=== PATIENT | female | born 1990 | race Caucasian/White ===

== ENCOUNTER → 2016-09-01 | Outpatient (REF) | payer OTHER | LOC: M LAB REF 13:04 | PROVIDERS: ATTEND Advanced Practice Midwife | DX: Z34.83 Encounter for supervision of other normal pregnancy, third trimester (principal) ==

== ENCOUNTER 2016-10-05 07:35 | Inpatient (IN) | payer OTHER ==
[~2016-10-05] VITALS: Ht 152.4 cm; Wt 65.0 kg
[2016-10-05] VITALS (7 sets, daily range): BP systolic 119–147; BP diastolic 73–82
[2016-10-05] MEDS ORDERED: PRENTAB9 PO (07:40)
[2016-10-05] MEDS ORDERED: LACTATED RINGER'S 1000 ML IV STA (08:05)
[2016-10-05] MEDS: miSOPROStol 50 MCG 1/2 TAB (S0191) PO SCH ×2 (08:35→12:50)
[2016-10-05 08:37] LABS: MEAN CORPUSCULAR HEMOGLOBIN 29.6 pg (27.0-33.0); MEAN CORPUSCULAR HGB CONC 32.4 g/dl (32.0-36.5); MEAN CORPUSCULAR VOLUME 91.5 fl (80.0-96.0); RED CELL DISTRIBUTION WIDTH 13.3 % (11.5-14.5)
--- NOTE | 2016-10-05 13:10 | HPE ---
DATE OF ADMISSION: 10/05/2016 HISTORY: 26-year-old, 1, estimated date of delivery 09/29/2016, admitted at 40 weeks 6 days for induction of labor. Denies loss of fluid or bleeding. Fetus is active. Last normal menstrual period 12/24/2015, for expected date of delivery (LUCHO) of 09/29/2016, sonogram at 9 weeks confirmed the date. Anatomy scan within normal limits. Low lying placenta, resolved. ALLERGIES: No known drug allergies. MEDICAL/SURGICAL: Noncontributory. FAMILY HISTORY: Cancer, diabetes, hypertension and vascular necrosis. SOCIAL HISTORY: . Denies tobacco, alcohol, drugs or abuse. OBJECTIVE: Prepregnancy weight 121, total weight gain 32 pounds. A negative, received RhoGAM. Antibody negative, rubella immune, VDRL, hepatitis B, hepatitis C, HIV, gonorrhea, and Chlamydia all negative. 1-hour glucose 110. Group B strep is negative. No apparent distress. Vital signs are stable. Heart rate is regular. Respirations are easy. Abdomen is soft, gravid, longitudinal lie. Irregular contractions. heart 120, moderate variability with a few accelerations. Cervix 2-3 cm, 80% -1 station, moderate texture, cephalic. ASSESSMENT: 1. Primipara at term for induction of labor. 2. Category one tracing. PLAN: Admit for induction of labor per consult. The patient plans epidural. Anticipate normal spontaneous vaginal .
[2016-10-05] MEDS ORDERED: LR 1,000 ML IV SCH (14:23)
[2016-10-05] MEDS ORDERED: OXYTOCIN DRIP 30 UNITS in APPROPRIATE DILUENT 1 EA IV SCH (14:30)
[2016-10-05] MEDS ORDERED: FENTANYL 2MCG/ML ROPIVACAINE 0.2% NACL 250 ML CADD As Ordered ONE (20:35)
[2016-10-05] MEDS ORDERED: BUTORPHANOL 2 MG/ML INJ (J0595) IV ONE (20:45)
[2016-10-05] MEDS ORDERED: REFRIGERATOR IV KEYS XX PRN (22:00)
[2016-10-05] MEDS ORDERED: diphenhydrAMINE INJ 50MG/ML VIAL (J1200) IV PRN (22:00)
[2016-10-05] MEDS ORDERED: FENTANYL/ROPIVACAINE/NACL CADD 250 ML EPIDURAL SCH (22:00)
[2016-10-05] MEDS ORDERED: ONDANSETRON 4MG/2ML VIAL (J2405) IV PRN (22:00)
[2016-10-05] MEDS ORDERED: EPIDURAL/PCA KEYS XX PRN (22:00)
[2016-10-05] MEDS ORDERED: EPIDURAL COMMENT XX SCH (22:00)
[2016-10-05] MEDS ORDERED: NALOXONE INJ 0.4 MG/1 ML VIAL (J2310) IV PRN (22:00)
[2016-10-05] MEDS ORDERED: ePHEDrine SULFATE 25 MG/5 ML(5MG/ML) SYRINGE IV PRN (22:00)
[2016-10-05] MEDS ORDERED: LACTATED RINGER'S 1000 ML IV PRN (22:00)
[2016-10-06] MEDS ORDERED: DIBUCAINE 1% OINTMENT 30GM TOP PRN (04:30)
[2016-10-06] MEDS ORDERED: DOCUSATE SODIUM 100 MG CAP PO PRN (04:30)
[2016-10-06] MEDS ORDERED: MOM 30ML SUSPENSION UDC PO PRN (04:30)
[2016-10-06] MEDS ORDERED: ANUSOL HC CREAM 30GM TOP PRN (04:30)
[2016-10-06] MEDS ORDERED: RHOGAM 300 MCG (1500 IU) INJ (J2790) IM SCH (04:30)
[2016-10-06] MEDS ORDERED: METHYLERGONOVINE MALEATE 0.2 MG TAB PO PRN (04:30)
[2016-10-06] MEDS ORDERED: MEASLES,MUMPS,RUBELLA VACCINE INJ (MMR-II) (90707) SC SCH (04:30)
[2016-10-06 06:29] VITALS: BP 128/80
[2016-10-06] MEDS: PRENATAL VITAMIN TAB PO SCH (09:22)
--- NOTE | 2016-10-06 14:01 | DN ---
DATE: 10/06/2016. Utilized epidural for coping. Spontaneous rupture of membranes, clear fluid at 8 cm at 2226 hours. Labored down. Fully dilated 2335 hours. Pushed with encouragement. Viable male delivered ALYSSA through tight nuchal cord at 0342 hours. Spontaneous respirations with stimulation. Transitioned on maternal abdomen. Cord doubly clamped and cut once pulsations ceased. scores nine and nine. Placenta Jha intact with three-vessel cord at 0356 hours. Fundus firmed with massage and IV Pitocin bolus. Second-degree perineal laceration repaired in layers with #3-0 Vicryl Rapide. Estimated blood loss 300 mL. Infant weight 3806 grams, 8 pounds 6 ounces. Sponge, sharp and instrument count correct. Mom and baby doing well.
[2016-10-06] MEDS: IBUPROFEN 800 MG TAB PO PRN (14:11)
[2016-10-06] MEDS: ACETAMINOPHEN 500 MG TAB PO PRN (17:44)
[2016-10-06 18:05] VITALS: BP 150/98
[2016-10-07] MEDS: IBUPROFEN 800 MG TAB PO PRN ×2 (02:32→22:28)
[2016-10-07 06:15] VITALS: BP 129/88
[2016-10-07] MEDS: ACETAMINOPHEN 500 MG TAB PO PRN (08:36)
[2016-10-07] MEDS: PRENATAL VITAMIN TAB PO SCH (08:36)
[2016-10-07 18:00] VITALS: BP 141/85
[2016-10-08 05:56] VITALS: BP 146/92
[2016-10-08] MEDS: PRENATAL VITAMIN TAB PO SCH (08:52)
[2016-10-08] MEDS ORDERED: ACET50TA PO (10:14)
[2016-10-08] MEDS ORDERED: IBUP-1114 PO (10:14)
== END 2016-10-08 12:45 | disposition home or self-care (01) | DRG 775 ==
LOC: M LDI 07:35 → M OBS 10-06 05:52
PROVIDERS: ADMIT Advanced Practice Midwife; ATTEND Advanced Practice Midwife
PROC: 10E0XZZ Delivery of Products of Conception, External Approach (ICD-10-PCS; principal; 2016-10-06)
PROC: 0KQM0ZZ Repair Perineum Muscle, Open Approach (ICD-10-PCS; 2016-10-06)
PROC: 3E0P7GC Introduction of Other Therapeutic Substance into Female Reproductive, Via Natural or Artificial Opening (ICD-10-PCS; 2016-10-06)
DX: O48.0 Post-term pregnancy (principal); Z3A.40 40 weeks gestation of pregnancy; O69.1XX0 Labor and delivery complicated by cord around neck, with compression, not applicable or unspecified; O70.1 Second degree perineal laceration during delivery; Z37.0 Single live birth

== ENCOUNTER → 2016-12-01 | Outpatient (REF) | payer OTHER ==
[~2016-12-01] MED LIST: ACET50TA PO; IBUP-1114 PO; PRENTAB9 PO
== END ==
LOC: M LAB REF 09:00
PROVIDERS: ATTEND Advanced Practice Midwife
DX: Z11.3 Encounter for screening for infections with a predominantly sexual mode of transmission (principal)

== ENCOUNTER → 2017-08-07 | Outpatient (REF) | payer OTHER | LOC: M LAB REF 19:35 | PROVIDERS: ATTEND Physician Assistant Medical | DX: N30.01 Acute cystitis with hematuria (principal) ==

== ENCOUNTER → 2018-04-29 | Outpatient (REF) ==
[2018-04-29 13:40] LABS: BASO % 0.5 % (0.0-1.0); EOS % 0.5 % (0.0-3.0); HEMATOCRIT 42.9 % (36.0-47.0); HEMOGLOBIN 14.7 g/dl (12.0-15.5); IMMATURE GRANULOCYTE % 0.3 % (0-3.0); LYMPH # 2.5 10^3/uL (1.5-6.5); LYMPH % 37.5 % (24.0-44.0); MEAN CORPUSCULAR HEMOGLOBIN 30.6 pg (27.0-33.0); MEAN CORPUSCULAR HGB CONC 34.3 g/dl (32.0-36.5); MEAN CORPUSCULAR VOLUME 89.2 fl (80.0-96.0); MONO # 0.5 10^3/uL (0.0-0.8); MONO % 6.9 % (0.0-5.0); NEUTROPHILS # 3.6 10^3/uL (1.8-7.7); NEUTROPHILS % 54.3 % (36.0-66.0); PLATELET COUNT, AUTOMATED 228 10^3/uL (150-450); RED BLOOD COUNT 4.81 10^6/uL (4.00-5.40); RED CELL DISTRIBUTION WIDTH 11.8 % (11.5-14.5); WHITE BLOOD COUNT 6.5 10^3/uL (4.0-10.0)
[2018-04-29 13:44] LABS: APPEARANCE, URINE CLEAR (CLEAR); BACTERIA, URINE AUTO NEGATIVE (NEGATIVE); BILIRUBIN, URINE AUTO NEGATIVE (NEGATIVE); BLOOD, URINE BLOOD NEGATIVE (NEGATIVE); COLOR, URINE YELLOW (YELLOW); GLUCOSE, URINE (UA) AUTO NEGATIVE (NEGATIVE); KETONE, URINE AUTO TRACE mg/dL (NEGATIVE); LEUKOCYTE ESTERASE, URINE AUTO NEGATIVE (NEGATIVE); MUCUS, URINE SMALL (NEGATIVE); NITRITE, URINE AUTO NEGATIVE (NEGATIVE); PROTEIN, URINE AUTO NEGATIVE (NEGATIVE); RBC, URINE AUTO 8 /HPF (0-3); SQUAMOUS EPITHELIAL CELL UR AU 2 /HPF (0-6); UROBILINOGEN, URINE AUTO 0.2 mg/dL (0.0-2.0); WBC, URINE AUTO 0 /HPF (0-3)
[2018-04-29 23:28] LABS: ALBUMIN 4.4 GM/DL (3.2-5.2); ALKALINE PHOSPHATASE 69 U/L (45-117); ALT/SGPT 19 U/L (12-78); ANION GAP 9 MEQ/L (8-16); AST/SGOT 13 U/L (7-37); BILIRUBIN,TOTAL 0.5 MG/DL (0.2-1.0); BLOOD UREA NITROGEN 10 MG/DL (7-18); CALCIUM LEVEL 10.3 MG/DL (8.5-10.1); CARBON DIOXIDE LEVEL 25 MEQ/L (21-32); CHLORIDE LEVEL 105 MEQ/L (98-107); CREATININE FOR GFR 0.71 MG/DL (0.55-1.30); GLOMERULAR FILTRATION RATE > 60.0 (>60); GLUCOSE, FASTING 84 MG/DL (70-100); POTASSIUM SERUM 4.5 MEQ/L (3.5-5.1); SODIUM LEVEL 139 MEQ/L (136-145); TOTAL PROTEIN 7.8 GM/DL (6.4-8.2)
[2018-04-29 23:36] LABS: ALBUMIN/GLOBULIN RATIO 1.29 (1.00-1.93)
== END ==
LOC: M LAB 12:54
DX: Z00.00 Encounter for general adult medical examination without abnormal findings (principal)

== ENCOUNTER → 2018-06-20 | Outpatient (REF) | payer BC, OTHER | LOC: M LAB REF 19:14 | DX: N39.0 Urinary tract infection, site not specified (principal) ==

== ENCOUNTER → 2020-01-13 | Outpatient (REF) | payer BC ==
[~2020-01-13] MED LIST changes: -ACET50TA PO; +MAPA500T2 PO
== END ==
LOC: M SFHCWAGY 13:13
PROVIDERS: ATTEND Advanced Practice Midwife
DX: Z01.419 Encounter for gynecological examination (general) (routine) without abnormal findings (principal); Z12.4 Encounter for screening for malignant neoplasm of cervix

== ENCOUNTER → 2020-02-06 | Outpatient (CLI) | payer BC ==
--- NOTE | 2020-02-06 08:44 | REP ---
Pelvic sonography: History: Check IUD placement. Findings: Transabdominal and transvaginal scanning are performed. A retroverted normal size uterus is seen with dimensions of 7.3 x 3.7 x 5.7 cm. Endometrial echo 0.4 cm thick. IUD is seen in good position. No focal uterine mass or free fluid is seen. Normal ovaries are observed. Right ovary dimensions are 3.2 x 1.3 x 1.4 cm. Left ovary measures 3.6 x 1.6 x 1.7 cm. Ovarian Doppler flow is present bilaterally. Resistive indices are 0.53 and 0.51 on the right and left ovary respectively. Impression: Retroverted uterus. IUD in good position. No pelvic sonography. Electronically Signed by Gustavo Dutton MD 02/06/2020 08:36 A
== END ==
LOC: M WHC 07:44
PROVIDERS: ATTEND Advanced Practice Midwife
DX: Z12.4 Encounter for screening for malignant neoplasm of cervix (principal); Z97.5 Presence of (intrauterine) contraceptive device; N85.4 Malposition of uterus

== ENCOUNTER → 2020-05-05 | Outpatient (REF) | payer BC ==
[2020-05-05 13:51] LABS: APPEARANCE, URINE CLOUDY (CLEAR); BACTERIA, URINE AUTO NEGATIVE (NEGATIVE); BILIRUBIN, URINE AUTO NEGATIVE (NEGATIVE); BLOOD, URINE BLOOD 3+ (NEGATIVE); COLOR, URINE YELLOW (YELLOW); GLUCOSE, URINE (UA) AUTO NEGATIVE (NEGATIVE); KETONE, URINE AUTO NEGATIVE (NEGATIVE); LEUKOCYTE ESTERASE, URINE AUTO 3+ (NEGATIVE); MUCUS, URINE SMALL (NEGATIVE); NITRITE, URINE AUTO NEGATIVE (NEGATIVE); PROTEIN, URINE AUTO 2+ mg/dL (NEGATIVE); RBC, URINE AUTO TNTC /HPF (0-3); SPECIFIC GRAVITY URINE AUTO 1.019 (1.002-1.035); SQUAMOUS EPITHELIAL CELL UR AU 5 /HPF (0-6); UROBILINOGEN, URINE AUTO 0.2 mg/dL (0.0-2.0); WBC, URINE AUTO TNTC /HPF (0-3)
== END ==
LOC: M SMT 13:12
PROVIDERS: ATTEND Nurse Practitioner Family
DX: N39.0 Urinary tract infection, site not specified (principal)

== ENCOUNTER → 2021-01-03 | Outpatient (REF) | payer BC ==
[2021-01-03 15:40] LABS: HEMATOCRIT 40.1 % (36.0-47.0); HEMOGLOBIN 13.2 g/dl (12.0-15.5); MEAN CORPUSCULAR HEMOGLOBIN 30.8 pg (27.0-33.0); MEAN CORPUSCULAR HGB CONC 32.9 g/dl (32.0-36.5); MEAN CORPUSCULAR VOLUME 93.5 fl (80.0-96.0); PLATELET COUNT, AUTOMATED 216 10^3/uL (150-450); RED BLOOD COUNT 4.29 10^6/uL (4.00-5.40); WHITE BLOOD COUNT 7.5 10^3/uL (4.0-10.0)
[2021-01-03 16:59] LABS: HIV 1&2 SCREEN CENTAUR NEGATIVE (NEGATIVE)
[2021-01-03 17:15] LABS: CHLAMYDIA DNA AMPLIFICATION NEGATIVE (NEGATIVE); GC DNA AMPLIFICATION NEGATIVE (NEGATIVE)
== END ==
LOC: M PLALAB 12:41
PROVIDERS: ATTEND Advanced Practice Midwife
DX: Z34.81 Encounter for supervision of other normal pregnancy, first trimester (principal); Z3A.01 Less than 8 weeks gestation of pregnancy

== ENCOUNTER → 2021-03-08 | Outpatient (CLI) | payer BC ==
--- NOTE | 2021-03-08 16:13 | REP ---
INDICATION: ANATOMY. COMPARISON: None. TECHNIQUE: Real-time sonographic evaluation of the gravid uterus performed. Transabdominal and transvaginal imaging is performed. FINDINGS: Estimated gestational age is19 weeks 1 day, EDC 08/01/2021. Today's measurements indicate appropriate growth. Presentation: Breech Placenta posterior, grade 1, and on transvaginal imaging there appears to be complete placenta previa. heart rate is recorded at 147 beats per minute. Amniotic fluid is subjectively normal. Closed cervical length is measured at 4.8 cm. Biometry chart: BPD: 47 mm, 20 weeks 2 days, 81st percentile. HC: 172 mm, 19 weeks 5 days, 69th percentile AC: 140 mm, 19 weeks 3 days, 55th percentile Femur length: 29 mm, 19 weeks 0 days, 47th percentile HC to AC ratio: 1.23, normal range 1.06-1.25. Estimated weight: 285g, 55th percentile. anatomy: Cranium: Grossly normal Lateral Ventricles/Choroid Plexus: Grossly normal Posterior Fossa/Cerebellum: Grossly normal Nose/lips/profile: Grossly normal Four chamber heart: Grossly normal Right ventricular outflow tract: Grossly normal Left ventricular outflow tract: Grossly normal Left-sided stomach: Grossly normal Kidneys: Grossly normal Bladder: Grossly normal Cord Insertion: Grossly normal 3 vessel cord: Grossly normal Spine: Grossly normal IMPRESSION: Viable single intrauterine gestation as above. Complete placenta previa. <Electronically signed by Philippe Thomas > 03/08/21 [id number]
== END ==
LOC: M WHC 14:56
PROVIDERS: ATTEND Specialist
DX: O32.1XX0 Maternal care for breech presentation, not applicable or unspecified (principal); Z36.89 Encounter for other specified antenatal screening; Z3A.20 20 weeks gestation of pregnancy; O44.02 Complete placenta previa NOS or without hemorrhage, second trimester

== ENCOUNTER → 2021-04-21 | Outpatient (CLI) | payer BC ==
--- NOTE | 2021-04-21 19:20 | REP ---
INDICATION: COMPLETE PREVIA. COMPARISON: Comparison obstetric sonography March 08, 2021. TECHNIQUE: Transabdominal and transvaginal scanning or performed. Limited Ob sonography. FINDINGS: Scanning through the gravid uterus demonstrates a viable single intrauterine gestation in a breech lie. heart rate is recorded at 155 beats per minute. A posterior grade 1 placenta is seen with a low lying posterior margin. On transvaginal imaging, the inferior edge of the placenta is 2.0 cm from the internal cervical os. Amniotic fluid is subjectively normal. Closed cervical length is 3.6 cm. No funneling. IMPRESSION: Low-lying posterior placenta. 2 cm from the internal cervical os. No previa. <Electronically signed by Freedom Dutton > 04/21/21 [id number]
== END ==
LOC: M WHC 12:00
PROVIDERS: ATTEND Obstetrics & Gynecology
DX: O44.42 Low lying placenta NOS or without hemorrhage, second trimester (principal); O32.1XX0 Maternal care for breech presentation, not applicable or unspecified

== ENCOUNTER → 2021-05-17 | Outpatient (CLI) | payer BC ==
--- NOTE | 2021-05-17 10:20 | REP ---
INDICATION: COMPLETE PLACENTA PREVIA. COMPARISON: Comparison studies April 21, 2021 and March 08, 2021. TECHNIQUE: Transabdominal obstetric sonography. FINDINGS: Scanning through the gravid uterus demonstrates a viable single intrauterine gestation in cephalic lie. motion is observed and heart rate is recorded at 158 beats per minute. A posterior placenta is seen, grade 1, without evidence of placenta previa. Closed cervical length is measured at 3.3 cm transabdominally. No extrauterine abnormality is observed. Amniotic fluid is subjectively normal. RYAN is normal at 21.3 cm. Biometry chart: BPD 7.8 cm, 31 weeks 2 days Head circumference 28.5 cm, 31 weeks 2 days Abdominal circumference 24.5 cm, 28 weeks 5 days Femur length 5.5 cm, 29 weeks 0 days Humeral length 5.0 cm, 29 weeks 2 days HC AC ratio normal 1.16 Cephalic index normal 0.77 Estimated weight 1363 g, 3 lb 0 oz, 41st percentile for 29 weeks 1 day IMPRESSION: Viable single intrauterine gestation at 30 weeks 0 days by today's composite sonographic criteria. LUCHO by today's sonography July 26, 2021. No complication identified. Expected gestational age estimate based on known LUCHO of 01 August 2021 is 29 weeks 1 day. No evidence of placenta previa. <Electronically signed by Freedom Dutton > 05/17/21 1016
== END ==
LOC: M WHC 07:40
PROVIDERS: ATTEND Obstetrics & Gynecology
DX: Z36.2 Encounter for other antenatal screening follow-up (principal); Z3A.30 30 weeks gestation of pregnancy

== ENCOUNTER → 2021-05-19 | Outpatient (REF) ==
[2021-05-19 15:35] LABS: APPEARANCE, URINE CLEAR (CLEAR); BACTERIA, URINE AUTO NEGATIVE (NEGATIVE); BILIRUBIN, URINE AUTO NEGATIVE (NEGATIVE); BLOOD, URINE BLOOD NEGATIVE (NEGATIVE); COLOR, URINE YELLOW (YELLOW); GLUCOSE, URINE (UA) AUTO NEGATIVE (NEGATIVE); KETONE, URINE AUTO NEGATIVE (NEGATIVE); LEUKOCYTE ESTERASE, URINE AUTO NEGATIVE (NEGATIVE); NITRITE, URINE AUTO NEGATIVE (NEGATIVE); PROTEIN, URINE AUTO NEGATIVE (NEGATIVE); RBC, URINE AUTO 0 /HPF (0-3); SPECIFIC GRAVITY URINE AUTO 1.016 (1.002-1.035); SQUAMOUS EPITHELIAL CELL UR AU 0 /HPF (0-6); UROBILINOGEN, URINE AUTO 0.2 mg/dL (0.0-2.0); WBC, URINE AUTO 0 /HPF (0-3)
[2021-05-19 15:40] LABS: BASO % 0.3 % (0.0-1.0); EOS % 0.4 % (0.0-3.0); HEMATOCRIT 38.8 % (36.0-47.0); HEMOGLOBIN 12.9 g/dl (12.0-15.5); LYMPH # 1.4 10^3/uL (1.5-5.0); LYMPH % 18.6 % (24.0-44.0); MEAN CORPUSCULAR HEMOGLOBIN 32.2 pg (27.0-33.0); MEAN CORPUSCULAR HGB CONC 33.2 g/dl (32.0-36.5); MEAN CORPUSCULAR VOLUME 96.8 fl (80.0-96.0); MONO # 0.6 10^3/uL (0.0-0.8); MONO % 7.7 % (2.0-8.0); NEUTROPHILS # 5.5 10^3/uL (1.5-8.5); NEUTROPHILS % 71.3 % (36.0-66.0); PLATELET COUNT, AUTOMATED 165 10^3/uL (150-450); RED BLOOD COUNT 4.01 10^6/uL (4.00-5.40); WHITE BLOOD COUNT 7.7 10^3/uL (4.0-10.0)
[2021-05-19 16:21] LABS: ALBUMIN 2.8 GM/DL (3.2-5.2); ALT/SGPT 14 U/L (12-78); BILIRUBIN,TOTAL 0.2 MG/DL (0.2-1.0); BLOOD UREA NITROGEN 7 MG/DL (7-18); CALCIUM LEVEL 9.6 MG/DL (8.5-10.1); CARBON DIOXIDE LEVEL 26 MEQ/L (21-32); CHLORIDE LEVEL 105 MEQ/L (98-107); CREATININE FOR GFR 0.55 MG/DL (0.55-1.30); GLOMERULAR FILTRATION RATE > 60.0 (>60); GLUCOSE, FASTING 93 MG/DL (70-100); POTASSIUM SERUM 3.9 MEQ/L (3.5-5.1); SODIUM LEVEL 138 MEQ/L (136-145)
== END ==
LOC: M PLALAB 12:14
PROVIDERS: ATTEND Nurse Practitioner Adult Health
DX: Z02.1 Encounter for pre-employment examination (principal)

== ENCOUNTER → 2021-05-19 | Outpatient (CLI) | payer BC ==
[2021-05-19 15:40] LABS: HEMATOCRIT 38.9 % (36.0-47.0); HEMOGLOBIN 12.8 g/dl (12.0-15.5); MEAN CORPUSCULAR HEMOGLOBIN 31.8 pg (27.0-33.0); MEAN CORPUSCULAR HGB CONC 32.9 g/dl (32.0-36.5); MEAN CORPUSCULAR VOLUME 96.8 fl (80.0-96.0); PLATELET COUNT, AUTOMATED 167 10^3/uL (150-450); RED BLOOD COUNT 4.02 10^6/uL (4.00-5.40); WHITE BLOOD COUNT 7.8 10^3/uL (4.0-10.0)
== END ==
LOC: M PLALAB 12:09
PROVIDERS: ATTEND Obstetrics & Gynecology
DX: O44.42 Low lying placenta NOS or without hemorrhage, second trimester (principal)
CPT/HCPCS: 36415; 82950; 85027; 86850; 86900; 86901; J2790

== ENCOUNTER → 2021-07-07 | Outpatient (REF) | payer BC | LOC: M SFHCWAGY 13:05 | PROVIDERS: ATTEND Obstetrics & Gynecology | DX: Z36.89 Encounter for other specified antenatal screening (principal); Z3A.00 Weeks of gestation of pregnancy not specified ==

== ENCOUNTER → 2021-07-11 | Outpatient (REF) | LOC: M LABSMTC 10:22 | PROVIDERS: ATTEND Family Medicine | DX: Z20.822 Contact with and (suspected) exposure to COVID-19 (principal) ==

== ENCOUNTER → 2021-07-16 | Outpatient (REF) ==
[~2021-07-16] MED LIST changes: +IBUP80TA PO
== END ==
LOC: M LABSMTC 11:31
PROVIDERS: ATTEND Family Medicine
DX: Z20.822 Contact with and (suspected) exposure to COVID-19 (principal)

== ENCOUNTER 2021-07-25 11:16 | Inpatient (IN) | payer BC ==
[~2021-07-25] VITALS: Ht 152.4 cm; Wt 68.1 kg
[2021-07-25] VITALS (34 sets, daily range): BP systolic 99–147; BP diastolic 51–87
[~2021-07-25 11:16] MED LIST changes: -IBUP80TA PO
--- OUTSIDE RECORDS SUMMARY | 2021-07-25 11:23 | CCD ---
Continuity of Care Document (CCD) Created on: 05/20/2021 Elly Zendejas External Reference #: [id number] : 1990 Sex: Female Author Author Elly MEYER Organization Unknown Address [address] [place] [address] Phone [phone] Care Team Providers Care Pharmacy Technician Program Director Name Role Phone Kianna Meyer D.O. AUTM Problems Description No Information Available Social History Type Date Description Comments Sex Unknown ETOH Use Denies alcohol use Tobacco Use Start: Unknown Patient has never smoked Recreational Drug Use Denies Drug Use Exercise Type/Frequency Walks 3 times a week Sun Exposure Uses sunscreen Seat Belt/Car Seat Always uses seat belt Allergies, Adverse Reactions, Alerts Description No Known Drug Allergies Medications Active Medications SIG Qnty Indications Ordering Provide r Date Mirena (52 MG) 20mcg/24HR IUD Kianna Meyer D.O. 06/16/2019 Clindamycin Phos-Benzoyl Perox 1-5 % Gel apply to face area twice daily 100gm L70.0 Kianna christian D.O. 06/16/2019 Immunizations Description No Information Available Vital Signs Date Vital Result Comment 06/16/2019 3:07pm BP Systolic 116 mmHg BP Diastolic 74 mmHg Height 60 inches 5'0" Weight 130.25 lb BMI (Body Mass Index) 25.4 kg/m2 Heart Rate 84 /min Respiratory Rate 16 /min Body Temperature 99.1 F O2 % BldC Oximetry 98 % [place] Body Weight 100 lb Results Test Acquired Date Facility Test Result H/L Range Note Complete Blood Count 05/19/2021 [facility] Outpatient Test ing (Registration) [address] [place], [place] [id number] [phone] White Blood Count 7.8 10 Normal 4.0-10.0 Red Blood Count 4.02 10 Normal 4.00-5.40 Hemoglobin 12.8 g/dL Normal 12.0-15.5 Hematocrit 38.9 % Normal 36.0-47.0 Mean Corpuscular Volume 96.8 fl High 80.0-96.0 Mean Corpuscular Hemoglobin 31.8 pg Normal 27.0-33.0 Mean Corpuscular HGB Conc 32.9 g/dL Normal 32.0-36.5 Red Cell Distribution Width 13.1 % Normal 11.5-14.5 Platelet Count, Automated 167 10 Normal 150-450 Nucleated Red Blood Cell % 0.0 % Normal 0-0 Laboratory test finding 05/19/2021 [facility] Outpatient T esting (Registration) [address] [place], [place] [id number] [phone] Glucose Challenge Test 1 Hour 80 mg/dL Normal Le ss Than 140 Procedures Description No Information Available Medical Devices Description No Information Available Encounters Description No Information Available Assessments Description No Information Available Plan of Treatment No Information Available Functional Status Description No Information Available Mental Status Description No Information Available Referrals Description No Information Available
--- OUTSIDE RECORDS SUMMARY | 2021-07-25 11:23 | CCD ---
Author Author [facility] Organization [facility] Address Unknown Phone Unavailable Care Team Providers Care Assistant Hvac Mechanic Name Role Phone Hermelindo Vidal Unavailable PROBLEMS Type Condition ICD9-CM Code [id number] Code Onset Dates Condition S tatus W/U Status Risk SNOMED Code Notes Problem Medina angioma D18.01 Active confirmed 18194 01 Problem Nevus of buttock D22.5 Active confirmed 923 47776 Problem Nevus of neck D22.4 Active confirmed 941775 00 Problem Melanocytic nevi of trunk D22.5 Active confirmed 168511021 Problem Acne vulgaris L70.0 Active confirmed 583724 00 Problem Supervision of other normal Z34.80 Ac tive confirm 677327738 Problem Melanocytic nevi of left lower limb, including hip D22.72 Active confirmed 305821627 Problem Melanocytic nevi of right lower limb, including hip D22.71 Active confirmed 939712715 Problem Melanocytic nevi of left upper limb, including shoulder D22.62 Active confirmed 558086399 Problem Melanocytic nevi of right upper limb, including shoulder D22.61 Active confirmed [id number] ALLERGIES No Known Allergies ENCOUNTERS from 1990 to 2021-07-07 Encounter Location Date Provider Diagnosis [facility] [facility] [phone] [place] [address] May, Hermelindo Vidal 33 weeks gestation o f Z3A.33 and Encounter for supervision of other normal in third trimester Z34.83 IMMUNIZATIONS Vaccine Route Administration Date Status TDAP 0.5mL Boostrix IM Intramuscular May 20, 2021 Administere d Influenza 6mo & up Fluzone IM Intramuscular Jun 03, 2021 Admi nistered SOCIAL HISTORY Tobacco Use: Social History Observation Description Date Details (start date - stop date) Never Smoker Sex Assigned At : Social History Observation Description Sex Assigned At Unknown Domestic Violence: Question Answer Notes Status: No history of abuse Alcohol Screening: Question Answer Notes Did you have a drink containing alcohol in the past year? No Points 0 Interpretation Negative Tobacco Use: Question Answer Notes Are you a: never smoker REASON FOR REFERRAL No Information VITAL SIGNS Weight 144 lbs May, Height 60 in May, BMI 28.123 kg/m2 May, Blood pressure systolic 110 mm Hg May, Blood pressure diastolic 60 mm Hg May, MEDICATIONS Medication SIG (Take, Route, Frequency, Duration) Notes Start Da te End Date Status Spironolactone 25 mg 1 tablet Orally Daily for 30 day(s) Not-Taking Vitamin 27-0.8 MG 1 tablet Orally Once a day Active Clindamycin Phosphate 1 % 1 application to affected ar ea Externally Twice a day for 30 days Active Azelaic Acid 20 % 1 application Externally Once a day for 30 days Active IUD's Not-Taking PROCEDURES No Information RESULTS No Results REASON FOR VISIT 2WK PN MEDICAL (GENERAL) HISTORY Type Description Date Medical History acne Surgical History No know Surgical history Hospitalization History childbirth Goals Section No Information Health Concerns No Information MEDICAL EQUIPMENT No Information MENTAL STATUS No Information FUNCTIONAL STATUS No Information ASSESSMENTS Encounter Date Diagnosis Assessment Notes Treatment Notes Treatm ent Clinical Notes May, 33 weeks gestation of (ICD-10 - Z3A.33 ) May, Encounter for supervision of other normal in third trimester (ICD-10 - Z34.83) PLAN OF TREATMENT Next Appt Details 2 Weeks Reason:PN Provider Name:Era Hagan, 2021-07-12 11:40:00 AM, [address] [facility], , [place], [address], Provider Name:Catarina Valdes, 09:15:00 AM, [address] [facility], , [place], [address], Follow Up:2 WeeksPN Insurance Providers Payer Name Payer Address Payer Phone Insured Name Patient Relati onship to Insured Coverage Start Date Coverage End Date [employer] [facility] [place] [facility] [id number] [facility] [id number] VERONICA CHAVEZ self
--- OUTSIDE RECORDS SUMMARY | 2021-07-25 11:23 | CCD | Continuity of Care Document ---
Author Author Elly MEYER Organization Unknown Address [address] [place] [address] Phone [phone] Care Team Providers Care Video Production Intern Name Role Phone Kianna Meyer D.O. AUTM [phone] Problems Description No Information Available Social History [...] F O2 % BldC Oximetry 98 % [place] Body Weight 100 lb Results Test Acquired Date Facility Test Result H/L Range Note Complete Blood Count 05/19/2021 [facility] Outpatient Test ing (Registration) [address] [place], [place] [address] [phone] White Blood Count 7.8 10 Normal 4.0-10.0 [...] Normal 0-0 Laboratory test finding 05/19/2021 [facility] Outpatient T esting (Registration) [address] [place] [address] [phone] Glucose Challenge Test 1 Hour 80 mg/dL Normal Le ss Than 140 Type & Screen -Incl Blood Type,Kevin,AB SC 05/19/2021 [facility] Outpatient Testing (Registration) [address] [place] [address] [phone] Blood Type A NEGATIVE Normal AB Screen (Indirect Jorge L)Vis NEGATIVE Normal Laboratory test finding 05/19/2021 [facility] Outpatient T esting (Registration) [address] [place] [address] [phone] Rhogam TRANSFUSED PRODU <SEE NOTE> 1 1 TRANSFUSED PRODUCT: RHOGAM COUNT: 1 Procedures Description No Information Available Medical Devices Description No Information Available Encounters Description No Information Available Assessments Description No Information Available Plan of Treatment No Information Available Functional Status Description No Information Available Mental Status Description No Information Available Referrals Description No Information Available
--- OUTSIDE RECORDS SUMMARY | 2021-07-25 11:23 | CCD ---
Author Author [facility] Organization [facility] Address Unknown Phone Unavailable Care Team Providers Care Vertical Punch Operator Name Role Phone Hermelindo Vidal Unavailable PROBLEMS Type Condition ICD9-CM Code [id number] Code Onset Dates Condition S tatus W/U Status Risk SNOMED Code Notes Problem Medina angioma D18.01 Active confirmed 16792 01 Problem Nevus of buttock D22.5 Active confirmed 923 93342 Problem Nevus of neck D22.4 Active confirmed 787917 00 Problem Melanocytic nevi of trunk D22.5 Active confirmed 605570921 Problem Acne vulgaris L70.0 Active confirmed 748723 00 Problem Supervision of other normal Z34.80 Ac tive confirm 176869672 Problem Melanocytic nevi of left lower limb, including hip D22.72 Active confirmed 308510819 Problem Melanocytic nevi of right lower limb, including hip D22.71 Active confirmed 308723786 Problem Melanocytic nevi of left upper limb, including shoulder D22.62 Active confirmed 589975515 Problem Melanocytic nevi of right upper limb, including shoulder D22.61 Active confirmed [id number] ALLERGIES No Known Allergies ENCOUNTERS from 1990 to 2021-04-27 Encounter Location Date Provider Diagnosis [facility] [phone] [place] [address] Apr, Hermelindo Vidal Low-lying placenta i n second trimester O44.42 and 25 weeks gestation of Z3A.25 IMMUNIZATIONS No Information SOCIAL HISTORY Tobacco Use: Social History Observation Description Date Details (start date - stop date) Never Smoker Sex Assigned At : Social History Observation Description Sex Assigned At Unknown Alcohol Screening: Question Answer Notes Did you have a drink containing alcohol in the past year? No Points 0 Interpretation Negative Tobacco Use: Question Answer Notes Are you a: never smoker REASON FOR REFERRAL No Information VITAL SIGNS Weight 138.8 lbs Apr, Weight-kg 62.96 kg Apr, Height 60 in Apr, BMI 27.108 kg/m2 Apr, Blood pressure systolic 112 mm Hg Apr, Blood pressure diastolic 64 mm Hg Apr, MEDICATIONS Medication SIG (Take, Route, Frequency, Duration) Notes Start Da te End Date Status Spironolactone 25 mg 1 tablet Orally Daily for 30 day(s) Not-Taking Azelaic Acid 20 % 1 application Externally Once a day for 30 days Active Clindamycin Phosphate 1 % 1 application to affected ar ea Externally Twice a day for 30 days Active Vitamin 27-0.8 MG 1 tablet Orally Once a day Active IUD's Not-Taking PROCEDURES No Information RESULTS No Results REASON FOR VISIT 4 WK PN MEDICAL (GENERAL) HISTORY Type Description Date Medical History acne Surgical History No know Surgical history Hospitalization History childbirth Goals Section No Information Health Concerns No Information MEDICAL EQUIPMENT No Information MENTAL STATUS No Information FUNCTIONAL STATUS No Information ASSESSMENTS Encounter Date Diagnosis Assessment Notes Treatment Notes Treatm ent Clinical Notes Apr, Low-lying placenta in second trimester (ICD-10 - O44.42) Apr, 25 weeks gestation of (ICD-10 - Z3A.25 ) PLAN OF TREATMENT Treatment Notes Test Name Order Date CBC - Complete Blood Count 2021-04-22 Type and Screen (D Rh Antibody Screen) 2021-04-22 Glucose Challenge Test 1 Hour 2021-04-22 RH ONLY RHOGAM 2021-04-22 RHOGAM 2021-04-22 Next Appt Details 3 Weeks Reason:- Routine follow up Provider Name:Hermelindo Vidal, 07:15:00 AM, [address] [facility], , [place], [address], Provider Name:Catarina Valdes, 09:15:00 AM, [address] [facility], , [place], [address], Follow Up:3 Weeks- Routine follow up Insurance Providers Payer Name Payer Address Payer Phone Insured Name Patient Relati onship to Insured Coverage Start Date Coverage End Date [facility] [place] [facility] [phone] [place] [facility] [id number] VERONICA CHAVEZ self
--- OUTSIDE RECORDS SUMMARY | 2021-07-25 11:23 | CCD ---
Author Author [facility] Organization [facility] Address Unknown Phone Unavailable Care Team Providers Care Document Image Technician Name Role Phone Hermelindo Vidal Unavailable PROBLEMS Type Condition ICD9-CM Code [id number] Code Onset Dates Condition S tatus W/U Status Risk SNOMED Code Notes Problem Medina angioma D18.01 Active confirmed 79171 01 Problem Nevus of buttock D22.5 Active confirmed 923 12606 Problem Nevus of neck D22.4 Active confirmed 605633 00 Problem Melanocytic nevi of trunk D22.5 Active confirmed 192300850 Problem Acne vulgaris L70.0 Active confirmed 908413 00 Problem Supervision of other normal Z34.80 Ac tive confirm 083838717 Problem Melanocytic nevi of left lower limb, including hip D22.72 Active confirmed 228791995 Problem Melanocytic nevi of right lower limb, including hip D22.71 Active confirmed 822868204 Problem Melanocytic nevi of left upper limb, including shoulder D22.62 Active confirmed 085310751 Problem Melanocytic nevi of right upper limb, including shoulder D22.61 Active confirmed 535693600 ALLERGIES No Known Allergies ENCOUNTERS from 1991 to 2021-05-23 Encounter Location Date Provider Diagnosis [facility] Women[facility] Breast Care [facility] [phone] [place] [address] May, Hermelindo Vidal 29 weeks gestation o f Z3A.29 ; Encounter for supervision of normal in multigravida in third trimester Z34.83 and Encounter for immunization Z23 IMMUNIZATIONS Vaccine Route Administration Date Status TDAP 0.5mL Boostrix IM Intramuscular May 20, 2021 Administere d SOCIAL HISTORY Tobacco Use: Social History Observation [...] FOR REFERRAL No Information VITAL SIGNS Weight 141 lbs May, Height 60 in May, BMI 27.537 kg/m2 May, Blood pressure systolic 102 mm Hg May, Blood pressure diastolic 60 mm Hg May, MEDICATIONS Medication SIG (Take, Route, Frequency, Duration) Notes Start Da te End Date Status Clindamycin Phosphate 1 % 1 application to affected ar ea Externally Twice a day for 30 days Active Vitamin 27-0.8 MG 1 tablet Orally Once a day Active Spironolactone 25 mg 1 tablet Orally Daily for 30 day(s) Not-Taking IUD's Not-Taking Azelaic Acid 20 % 1 application Externally Once a day for 30 days Active PROCEDURES No Information RESULTS No Results REASON FOR VISIT 4wk pn MEDICAL (GENERAL) HISTORY Type Description Date Medical History acne Surgical History No know Surgical history Hospitalization History childbirth Goals Section No Information Health Concerns No Information MEDICAL EQUIPMENT No Information MENTAL STATUS No Information FUNCTIONAL STATUS No Information ASSESSMENTS Encounter Date Diagnosis Assessment Notes Treatment Notes Treatm ent Clinical Notes May, 29 weeks gestation of (ICD-10 - Z3A.29 ) May, Encounter for supervision of normal in multigravida in third trimester (ICD-10 - Z34.83) May, Encounter for immunization (ICD-10 - Z23) PLAN OF TREATMENT Treatment Notes Test Name Order Date Imm: Boostrix 0.5mL IM TDAP 2021-05-20 Next Appt Details 2-4 weeks Reason:PN Provider Name:Kesha Ocampo, 2021-06-03 08:00:00 AM, [address] [facility] [phone], [place], [address], Provider Name:Catarina Valdes, 09:15:00 AM, [address] [facility], , [place], [address], Follow Up:2-4 weeksPN Insurance Providers Payer Name Payer Address Payer Phone Insured Name Patient Relati onship to Insured Coverage Start Date Coverage End Date [employer] [place] [phone] [place] [facility] [id number] VERONICA CHAVEZ self
--- OUTSIDE RECORDS SUMMARY | 2021-07-25 11:23 | CCD ---
Author Author [facility] Organization [facility] Address Unknown Phone Unavailable Care Team Providers Care Prefabricated Houses Trimmer Name Role Phone Hermelindo Vidal Unavailable PROBLEMS Type Condition ICD9-CM Code [id number] Code Onset Dates Condition S tatus W/U Status Risk SNOMED Code Notes Problem Medina angioma D18.01 Active confirmed 31612 01 Problem Nevus of buttock D22.5 Active confirmed 923 13099 Problem Nevus of neck D22.4 Active confirmed 931837 00 Problem Melanocytic nevi of trunk D22.5 Active confirmed 440626649 Problem Acne vulgaris L70.0 Active confirmed 307982 00 Problem Supervision of other normal Z34.80 Ac tive confirm 462398649 Problem Melanocytic nevi of left lower limb, including hip D22.72 Active confirmed 758198774 Problem Melanocytic nevi of right lower limb, including hip D22.71 Active confirmed 026024987 Problem Melanocytic nevi of left upper limb, including shoulder D22.62 Active confirmed 313499943 Problem Melanocytic nevi of right upper limb, including shoulder D22.61 Active confirmed [id number] ALLERGIES No Known Allergies ENCOUNTERS from 1991 to 2021-06-08 Encounter Location Date Provider Diagnosis [facility] [address] [facility] [phone] [place] [address] May, Hermelindo Vidal IMMUNIZATIONS Vaccine Route Administration Date Status TDAP 0.5mL Boostrix IM Intramuscular May 20, 2021 Administere d RHo D Immune Globulin 300mcg/1.5mL RhoGAM IM Intramuscular May Administered Influenza 6mo & up Fluzone IM Intramuscular [...] REASON FOR REFERRAL No Information VITAL SIGNS No information MEDICATIONS Medication SIG (Take, Route, Frequency, Duration) [...] Information RESULTS No Results REASON FOR VISIT appt MEDICAL (GENERAL) HISTORY Type Description Date Medical History acne Surgical History No know Surgical history Hospitalization History childbirth Goals Section No Information Health Concerns No Information MEDICAL EQUIPMENT No Information MENTAL STATUS No Information FUNCTIONAL STATUS No Information ASSESSMENTS No Information PLAN OF TREATMENT Next Appt Details Provider Name:Hermelindo Vidal, 07:15:00 AM, [facility] [phone], [place], [address], Provider Name:Catarina Valdes, 09:15:00 AM, [address] [facility] [phone], [place], [address], Insurance Providers Payer Name Payer Address Payer Phone Insured Name Patient Relati onship to Insured Coverage Start Date Coverage End Date BCBS OF [facility] [phone] [place] [address] VERONICA CHAVEZ self
--- OUTSIDE RECORDS SUMMARY | 2021-07-25 11:23 | CCD ---
Author Author [facility] Organization [facility] Address Unknown Phone Unavailable Care Team Providers Care Senior Behavioral Scientist Name Role Phone Hermelindo Vidal Unavailable PROBLEMS Type Condition ICD9-CM Code [id number] Code Onset Dates Condition S tatus W/U Status Risk SNOMED Code Notes Problem Medina angioma D18.01 Active confirmed 01071 01 Problem Nevus of buttock D22.5 Active confirmed 923 38150 Problem Nevus of neck D22.4 Active confirmed 563431 00 Problem Melanocytic nevi of trunk D22.5 Active confirmed 554788044 Problem Acne vulgaris L70.0 Active confirmed 633684 00 Problem Supervision of other normal Z34.80 Ac tive confirm 210639340 Problem Melanocytic nevi of left lower limb, including hip D22.72 Active confirmed 314324954 Problem Melanocytic nevi of right lower limb, including hip D22.71 Active confirmed 934594946 Problem Melanocytic nevi of left upper limb, including shoulder D22.62 Active confirmed 199721102 Problem Melanocytic nevi of right upper limb, including shoulder D22.61 Active confirmed 209141370 ALLERGIES No Known Allergies ENCOUNTERS from 1991 to 2021-07-12 Encounter Location Date Provider Diagnosis [facility] Women[facility] Well[facility] [phone] [place] [address] Jun, Hermelindo Vidal 36 weeks gestation o f Z3A.36 and Encounter for supervision of other normal [...] FOR REFERRAL No Information VITAL SIGNS Weight 147 lbs Jun, Height 60 in Jun, BMI 28.709 kg/m2 Jun, Blood pressure systolic 112 mm Hg Jun, Blood pressure diastolic 60 mm Hg Jun, MEDICATIONS Medication SIG (Take, Route, Frequency, Duration) [...] Active IUD's Not-Taking PROCEDURES No Information RESULTS Component Value Reference Range GROUP B STREP CULTURE Reviewed date:07/11/2021 08:57:52 Interpretation: Performing Lab:[facility] [address] [place] [address] , ,[facility] REASON FOR VISIT 1WK PN MEDICAL (GENERAL) HISTORY Type Description Date Medical History acne Surgical History No know Surgical history Hospitalization History childbirth Goals Section No Information Health Concerns No Information MEDICAL EQUIPMENT No Information MENTAL STATUS No Information FUNCTIONAL STATUS No Information ASSESSMENTS Encounter Date Diagnosis Assessment Notes Treatment Notes Treatm ent Clinical Notes Jun, 36 weeks gestation of (ICD-10 - Z3A.36 ) Jun, Encounter for supervision of other normal in third trimester (ICD-10 - Z34.83) PLAN OF TREATMENT Next Appt Details 1 Week Reason:PN Provider Name:Catarina Valdes, 09:15:00 AM, [address] [place] [address], , [place], [place], [facility], Follow Up:1 WeekPN Insurance Providers Payer Name Payer Address Payer Phone Insured Name Patient Relati onship to Insured Coverage Start Date Coverage End Date BCBS OF [facility] [phone] [facility] [id number] VERONICA CHAVEZ self
--- OUTSIDE RECORDS SUMMARY | 2021-07-25 11:23 | CCD ---
Author Author [facility] Organization [facility] Address Unknown Phone Unavailable Care Team Providers Care Geospatial Technician Name Role Phone Hermelindo Vidal Unavailable PROBLEMS ALLERGIES No Known Allergies ENCOUNTERS from 1991 to 2021-07-01 IMMUNIZATIONS SOCIAL HISTORY REASON FOR REFERRAL No Information VITAL SIGNS MEDICATIONS PROCEDURES No Information RESULTS No Results REASON FOR VISIT MEDICAL (GENERAL) HISTORY Goals Section Health Concerns MEDICAL EQUIPMENT No Information MENTAL STATUS FUNCTIONAL STATUS ASSESSMENTS PLAN OF TREATMENT Insurance Providers
--- OUTSIDE RECORDS SUMMARY | 2021-07-25 11:23 | CCD | Continuity of Care Document ---
Author Author Elly MEYER Organization Unknown Address [address] [place] [address] Phone [phone] Care Team Providers Care Food Mobile Driver Name Role Phone Kianna Meyer D.O. AUTM [phone] Problems Description No Information Available Social [...] F O2 % BldC Oximetry 98 % [place] Body Weight 100 lb Results Test Acquired Date Facility Test Result H/L Range Note Complete Blood Count 05/19/2021 [facility] Outpatient Test ing (Registration) [address] [place], [place] [id number] [phone] White Blood Count 7.8 10 Normal 4.0-10.0 [...] % Normal 0-0 Laboratory test finding 05/19/2021 [facility] Outpatient T esting (Registration) [address] [place] [address] [phone] Glucose Challenge Test 1 Hour 80 mg/dL Normal Le ss Than 140 Type & Screen -Incl Blood Type,Kevin,AB SC 05/19/2021 [facility] Outpatient Testing (Registration) [address] [place] [address] [phone] Blood Type A NEGATIVE Normal AB Screen (Indirect Jorge L)Vis NEGATIVE Normal Laboratory test finding 05/19/2021 [facility] Outpatient T esting (Registration) [address] [place] [address] [phone] Rhogam TRANSFUSED PRODU <SEE NOTE> 1 1 TRANSFUSED PRODUCT: RHOGAM COUNT: 1 Procedures Description No Information Available Medical Devices Description No Information Available Encounters Description No Information Available Assessments Description No Information Available Plan of Treatment No Information Available Functional Status Description No Information Available Mental Status Description No Information Available Referrals Description No Information Available
--- OUTSIDE RECORDS SUMMARY | 2021-07-25 11:23 | CCD ---
Author Author [facility] Organization [facility] Address Unknown Phone Unavailable Care Team Providers Care Regulator Inspector Name Role Phone Lucho [place] Unavailable PROBLEMS Type Condition ICD9-CM Code [id number] Code Onset Dates Condition S tatus W/U Status Risk SNOMED Code Notes Problem Medina angioma D18.01 Active confirmed 41738 01 Problem Nevus of buttock D22.5 Active confirmed 923 53721 Problem Nevus of neck D22.4 Active confirmed 834221 00 Problem Melanocytic nevi of trunk D22.5 Active confirmed 875602198 Problem Acne vulgaris L70.0 Active confirmed 935830 00 Problem Supervision of other normal Z34.80 Ac tive confirm 358217198 Problem Melanocytic nevi of left lower limb, including hip D22.72 Active confirmed 341523522 Problem Melanocytic nevi of right lower limb, including hip D22.71 Active confirmed 578864239 Problem Melanocytic nevi of left upper limb, including shoulder D22.62 Active confirmed 610803137 Problem Melanocytic nevi of right upper limb, including shoulder D22.61 Active confirmed 515960049 ALLERGIES No Known Allergies ENCOUNTERS from 1991 to 2021-05-30 Encounter Location Date Provider Diagnosis [facility] [address] [facility] [phone] [place] [address] May, Lucho Colorado Encounter for superv ision of normal in third trimester Z34.93 IMMUNIZATIONS Vaccine Route Administration Date Status TDAP 0.5mL Boostrix IM Intramuscular May 20, 2021 Administere d RHo D Immune Globulin 300mcg/1.5mL RhoGAM IM Intramuscular May Administered SOCIAL HISTORY Tobacco Use: Social History Observation [...] a day for 30 days Active PROCEDURES from 1991 to 2021-05-30 Procedure Date Ordered Result Body Site Inj: RhoGAM 300mcg/1.5mL IM Rho D Immune Globulin Human N/A RESULTS No Results REASON FOR VISIT RHOGAM MEDICAL (GENERAL) HISTORY Type Description Date Medical History acne Surgical History No know Surgical history Hospitalization History childbirth Goals Section No Information Health Concerns No Information MEDICAL EQUIPMENT No Information MENTAL STATUS No Information FUNCTIONAL STATUS No Information ASSESSMENTS Encounter Date Diagnosis Assessment Notes Treatment Notes Treatm ent Clinical Notes May, Encounter for supervision of normal in third trimester (ICD-10 - Z34.93) PLAN OF TREATMENT Next Appt Details Provider Name:Kesha Ocampo, 2021-06-03 08:00:00 AM, [address] [facility] [phone], [place], [address] Provider Name:Catarina Valdes, 09:15:00 AM, [address] [facility], , [place], [address], Insurance Providers Payer Name Payer Address Payer Phone Insured Name Patient Relati onship to Insured Coverage Start Date Coverage End Date BCBS OF [facility] [phone] [place] [address] VERONICA CHAVEZ self
--- OUTSIDE RECORDS SUMMARY | 2021-07-25 11:24 | CCD ---
Author Author [facility] Organization [facility] Address Unknown Phone Unavailable Care Team Providers Care Medical Instrument Technician Name Role Phone Brewer, Sruthi CERTIFIED FLEX ENDOSCOPE REPROCESSOR Unavailable Unavailable Brewer, Sruthi CERTIFIED FLEX ENDOSCOPE REPROCESSOR Unavailable Unavailable Brewer, Sruthi CERTIFIED FLEX ENDOSCOPE REPROCESSOR Unavailable Unavailable Brewer, Sruthi CERTIFIED FLEX ENDOSCOPE REPROCESSOR Unavailable Unavailable Brewer, Sruthi CERTIFIED FLEX ENDOSCOPE REPROCESSOR Unavailable Unavailable Brewer, Sruthi CERTIFIED FLEX ENDOSCOPE REPROCESSOR Unavailable Unavailable Brewer, Sruthi CERTIFIED FLEX ENDOSCOPE REPROCESSOR Unavailable Unavailable Brewer, Sruthi CERTIFIED FLEX ENDOSCOPE REPROCESSOR Unavailable Unavailable Brewer, Sruthi CERTIFIED FLEX ENDOSCOPE REPROCESSOR Unavailable Unavailable Brewer, Sruthi CERTIFIED FLEX ENDOSCOPE REPROCESSOR Unavailable Unavailable Brewer, Sruthi CERTIFIED FLEX ENDOSCOPE REPROCESSOR Unavailable Unavailable Brewer, Sruthi CERTIFIED FLEX ENDOSCOPE REPROCESSOR Unavailable Unavailable Brewer, Sruthi CERTIFIED FLEX ENDOSCOPE REPROCESSOR Unavailable Unavailable Re-disclosure Warning The records that you are about to access may contain information from federally-assisted alcohol or drug abuse programs. If such information is present, then the following federally mandated warning applies: This information has been disclosed to you from records protected by federal confidentiality rules (42 CFR part 2). The federal rules prohibit you from making any further disclosure of this information unless further disclosure is expressly permitted by the written consent of the person to whom it pertains or as otherwise permitted by 42 CFR part 2. A general authorization for the release of medical or other information is NOT sufficient for this purpose. The Federal rules restrict any use of the information to criminally investigate or prosecute any alcohol or drug abuse patient.The records that you are about to access may contain highly sensitive health information, the redisclosure of which is protected by Article 27-F of the [facility] Public Health law. If you continue you may have access to information: Regarding HIV / AIDS; Provided by facilities licensed or operated by the [facility] Office of Mental Health; or Provided by the [facility] Office for People With Developmental Disabilities. If such information is present, then the following [facility] mandated warning applies: This information has been disclosed to you from confidential records which are protected by state law. State law prohibits you from making any further disclosure of this information without the specific written consent of the person to whom it pertains, or as otherwise permitted by law. Any unauthorized further disclosure in violation of state law may result in a fine or half-way sentence or both. A general authorization for the release of medical or other information is NOT sufficient authorization for further disc losure. Family History Family Member Name Family Member Gender Family Member Status Date o f Status Description Data Source(s) Unknown Unknown Problem MEDENT ([facility]) father Unknown Unknown Problem MEDENT ([facility]) bladder, skin Encounters Encounter Providers Location Date Indications Data Source(s ) ( ESTOB) [facility] Est OB [address] [place] [address] 07/07/2021 12:00:00 AM EST eCW1 ([facility]) ( ESTOB) [facility] Est OB [address] [place] [address] 06/29/2021 12:00:00 AM EST eCW1 ([facility]) ( ESTOB) [facility] Est OB [address] [place] [address] 06/16/2021 12:00:00 AM EDT eCW1 ([facility]) Unknown [address] [facility] [address] 06/08/2021 12:00:00 AM EDT eCW1 ([facility]) ([facility] [place]) [facility] Nurse Visit [address] [place] [address] 05/25/2021 12:00:00 AM EDT eCW1 ([facility]) (WC ESTOB) [facility] Est OB [address] [place] [address] 05/20/2021 12:00:00 AM EDT eCW1 ([facility]) (WC ESTOB) [facility] Est OB [address] [place] [address] 04/22/2021 12:00:00 AM EDT eCW1 ([facility]) Outpatient [address] [facility] [place] [address] 04/18/2021 12:00:00 AM EDT eCW1 ([facility]) (WC ESTOB) [facility] Est OB [address] [place] [address] 03/24/2021 12:00:00 AM EDT eCW1 ([facility]) [place] [address] [facility] [address] 03/08/2021 12:00:00 AM EDT eCW1 ([facility]) (WC ESTOB) [facility] Est OB [address] [place] [address] 03/03/2021 12:00:00 AM EDT eCW1 ([facility]) (WC ESTOB) [facility] Est OB [address] [place] [address] 02/03/2021 12:00:00 AM EDT eCW1 ([facility]) Outpatient [address] [facility] [place] [address] 02/02/2021 12:00:00 AM EDT eCW1 ([facility]) (WC ESTOB) [facility] Est OB [address] [place] [address] 01/06/2021 12:00:00 AM EDT eCW1 ([facility]) ( ESTOB) [facility] Est OB [address] [place] [address] 12/09/2020 12:00:00 AM EDT eCW1 ([facility]) Outpatient Attender: Sruthi murcia 11/23/2020 11:30:00 AM EDT MEDENT ([facility]) ( PROC) [facility] Procedure [address] [place] [address] 09/16/2020 12:00:00 AM EST eCW1 ([facility]) Outpatient [address] [place] [address] 08/04/2020 12:00:00 AM EST eCW1 ([facility]) Unknown [address] [place] [address] 06/09/2020 12:00:00 AM EDT eCW1 ([facility]) Immunizations Vaccine Date Status Description Data Source(s) New in 2011. IIV4 06/03/2021 08:33:00 AM EDT completed eCW1 ([facility]) New in 2011. IIV4 06/03/2021 08:33:00 AM EDT completed eCW1 ([facility]) New in 2011. IIV4 06/03/2021 08:33:00 AM EDT completed eCW1 ([facility]) New in 2011. IIV4 06/03/2021 08:33:00 AM EDT completed eCW1 ([facility]) 05/25/2021 03:17:00 PM EDT completed e CW1 ([facility]) 05/25/2021 03:17:00 PM EDT completed e CW1 ([facility]) Tdap 05/20/2021 09:06:00 AM EDT completed e CW1 ([facility]) Tdap 05/20/2021 09:06:00 AM EDT completed e CW1 ([facility]) Tdap 05/20/2021 09:06:00 AM EDT completed e CW1 ([facility]) Tdap 05/20/2021 09:06:00 AM EDT completed e CW1 ([facility]) Tdap 05/20/2021 09:06:00 AM EDT completed e CW1 ([facility]) Tdap 05/20/2021 09:06:00 AM EDT completed e CW1 ([facility]) COVID-19 VACCINE Moderna 09/15/2020 12:00:00 AM EST completed [facility] Vaccine Series Complete: YESThis Data wa s Submitted to [facility] Via [employer]. COVID-19 VACCINE Moderna 08/18/2020 12:00:00 AM EST completed [facility] Vaccine Series Complete: NOThis Data was Submitted to [facility] Via [employer]. Medications Medication Brand Name Start Date Product Form Dose Route Admi nistrative Instructions Pharmacy Instructions Status Indications Reaction Description Data Source(s) 20 % 05/06/2021 12:00:00 AM EDT cream 30 APPLY EXTERNALLY ONCE DAILY APPLY EXTERNALLY ONCE DAILY SOLD: 05/16/2021 [facility] 20 % 02/03/2021 12:00:00 AM EDT cream 30 APPLY TOPICALLY TO AFFECTED AREA(S) ONCE A DAY APPLY TOPICALLY TO AFFECTED AREA(S) ONCE A DAY SOLD: 02/03/2021 [facility] 20 % 02/03/2021 12:00:00 AM EDT cream 30 APPLY TOPICALLY TO AFFECTED AREA(S) ONCE A DAY APPLY TOPICALLY TO AFFECTED AREA(S) ONCE A DAY SOLD: 03/31/2021 [facility] 1 % 02/02/2021 12:00:00 AM EDT swab 60 APPLY TO AFFECTED AREA(S) TWO TIMES A DAY APPLY TO AFFECTED AREA(S) TWO TIMES A DAY SOLD: 02/03/2021 [facility] Azelaic Acid 20 % UNK 02/02/2021 12:00:00 AM EDT 1.0 {applic ation} active Azelaic Acid 20 % eCW1 ([facility]) Azelaic Acid 20 % UNK 02/02/2021 12:00:00 AM EDT 1.0 {applic ation} active Azelaic Acid 20 % eCW1 ([facility]) 1 % 02/02/2021 12:00:00 AM EDT swab 60 APPLY TO AFFECTED AREA(S) TWO TIMES A DAY APPLY TO AFFECTED AREA(S) TWO TIMES A DAY SOLD: 03/31/2021 [facility] Azelaic Acid 20 % UNK 02/02/2021 12:00:00 AM EDT 1.0 {applic ation} active Azelaic Acid 20 % eCW1 ([facility]) 1 % 02/02/2021 12:00:00 AM EDT swab 60 APPLY TO AFFECTED AREA(S) TWO TIMES A DAY APPLY TO AFFECTED AREA(S) TWO TIMES A DAY SOLD: 05/16/2021 [facility] Azelaic Acid 20 % UNK 02/02/2021 12:00:00 AM EDT 1.0 {applic ation} active Azelaic Acid 20 % eCW1 ([facility]) Azelaic Acid 20 % UNK 02/02/2021 12:00:00 AM EDT 1.0 {applic ation} active Azelaic Acid 20 % eCW1 ([facility]) 137 mcg (0.1 %) 11/23/2020 12:00:00 AM EDT aerosol,spray 30 SPRAY 1 TO 2 SPRAYS EACH NOSTRIL TWO TIMES A DAY FOR 3 DAYS SPRAY 1 TO 2 SPRAYS EACH NOSTRIL TWO TIMES A DAY FOR 3 DAYS SOLD: 11/23/2020 [facility] No Active Medications 11/23/2020 12:00:00 AM EDT completed MEDENT ([facility]) Azelastine HCL (Nasal) Azelastine HCL (Nasal) 11/23/2020 12:00:00 AM E DT active MEDENT ([facility]) 25 mg 06/10/2020 12:00:00 AM EDT tablet 60 TAKE ONE TABLET BY MOUTH TWICE A DAY TAKE ONE TABLET BY MOUTH TWICE A DAY SOLD: 06/18/2020 [facility] Insurance Providers Payer name Policy type / Coverage type Policy ID Covered democrat ID Covered democrat's relationship to marquis Policy Marquis Plan Information BCBS OF [place] 306/806 [id number] SP [id number] [facility] [id number] SP [id number] ANSI-Commercial [id number] ANSI-Medicaid [id number] ANSI-Commercial [id number] ANSI-Medicaid [id number] ANSI-Medicaid [id number] ANSI-Commercial [id number] ANSI-Commercial [id number] ANSI-Medicaid [id number] BCBS/[employer] Commercial [id number] Self [id number] [facility] [id number] [place] [id number] BC[employer] Commercial [id number] Self [id number] [employer] Commercial [id number] Self [id number] [employer] [id number] Self [id number] [facility] Organization (HMO) [id number] Self [id number] [facility] Maintenance Organization (O) [id number] Self [id number] [facility] [id number] SP [id number] FORMERLY [facility] PLAN [facility] [id number] SP [id number] [employer] PLAN [id number] SP [id number] MEDICAID [id number] SP [id number] Problems, Conditions, and Diagnoses Code Display Name Description Problem Type Effective Dates Data Source(s) Z34.80 care Supervision of other normal Perla otero 12/09/2020 12:00:00 AM EDT eCW1 ([facility]) Surgeries/Procedures Procedure Description Date Indications Data Source(s) Inj: RhoGAM 300mcg/1.5mL IM Rho D Immune Globulin Human 05/25/2021 12:00:00 AM EDT eCW1 ([facility]) Results ID Date Data Source [id number] 07/16/2021 11:30:00 AM EST [facility] Name Value Range Interpretation Code Description Data Sravanthi rce(s) Supporting Document(s) SARS coronavirus 2 RNA [Presence] in Res piratory specimen by MARCIA with probe detection POSITIVE [facility] This lab was ordered by [facility] a nd reported by [facility]. ID Date Data Source [id number] 07/11/2021 10:25:00 AM EST [facility] Name Value Range Interpretation Code Description Data Sravanthi rce(s) Supporting Document(s) SARS coronavirus 2 RNA [Presence] in Res piratory specimen by MARCIA with probe detection NEGATIVE [facility] This lab was ordered by [facility] a nd reported by [facility]. ID Date Data Source GROUP B STREP CULTURE 07/07/2021 12:00:00 AM EST eCW1 ([facility]) Name Value Range Interpretation Code Description Data Sravanthi rce(s) Supporting Document(s) GROUP B STREP CULTURE eCW1 ([facility]) ID Date Data Source [id number] 05/19/2021 01:14:00 PM EDT MEDENT ([facility]) Name Value Range Interpretation Code Description Data Sravanthi rce(s) Supporting Document(s) Rh immune globulin screen [interpretation] Laboratory test result [facility]) TRANSFUSED PRODUCT: RHOGAM COUNT: 1 ID Date Data Source [id number] 05/19/2021 01:14:00 PM EDT MEDENT ([facility]) Name Value Range Interpretation Code Description Data Sravanthi rce(s) Supporting Document(s) AB Screen (Indirect Jorge L)Vis Laboratory test result Normal (applies to non- numeric results) [facility] ([facility]) Blood Type Laboratory test result Normal (applies to non-n umeric results) [facility] ([facility]) ID Date Data Source [id number] 05/19/2021 01:14:00 PM EDT [facility] ([facility]) Name Value Range Interpretation Code Description Data Sravanthi rce(s) Supporting Document(s) Glucose [Mass/volume] in Serum or Plasma --1 hour post XXX chall enge 80 mg/dL Normal (applies to non-numeric results) [facility] ([facility]) ID Date Data Source [id number] 05/19/2021 01:14:00 PM EDT MEDENT ([facility]) Name Value Range Interpretation Code Description Data Sravanthi rce(s) Supporting Document(s) White Blood Count 7.8 10 4.0-10.0 Normal (applies to non-numeri c results) [facility] ([facility]) Red Blood Count 4.02 10 4.00-5.40 Normal (applies to non-numeric results) [facility] ([facility]) Hemoglobin 12.8 g/dL 12.0-15.5 Normal (applies to non-numeric resul ts) [facility] ([facility]) Mean Corpuscular Volume 96.8 fl 80.0-96.0 Above high normal [facility] ([facility]) Mean Corpuscular Hemoglobin 31.8 pg 27.0-33.0 Norm al (applies to non-numeric results) [facility] ([facility]) Hematocrit 38.9 % 36.0-47.0 Normal (applies to non-numeric resul ts) [facility] ([facility]) Mean Corpuscular HGB Conc 32.9 g/dL 32.0-36.5 Normal (applies to non-numeric results) [facility] ([facility]) Red Cell Distribution Width 13.1 % 11.5-14.5 Norm al (applies to non-numeric results) [facility] ([facility]) Platelet Count, Automated 167 10 150-450 Normal (applies to non-numeric results) [facility] ([facility]) Nucleated Red Blood Cell % 0.0 % 0-0 Normal (applies to n on-numeric results) [facility] ([facility]) ID Date Data Source [id number] 11/23/2020 12:00:00 AM EDT [facility] Name Value Range Interpretation Code Description Data Sravanthi rce(s) Supporting Document(s) SARS-CoV2 Rapid Antigen Negative [facility] This lab was reported by Jese barraza. Procedure Social History Code Duration Value Status Description Data Source(s ) Smoking 07/11/2021 12:00:00 AM EST Never Smoker completed Never S moker eCW1 ([facility]) Smoking 06/30/2021 12:00:00 AM EST Never Smoker completed Never S moker eCW1 ([facility]) Smoking 06/30/2021 12:00:00 AM EST Never Smoker completed Never S moker eCW1 ([facility]) Smoking 05/30/2021 12:00:00 AM EDT Never Smoker completed Never S moker eCW1 ([facility]) Smoking 05/30/2021 12:00:00 AM EDT Never Smoker completed Never S moker eCW1 ([facility]) Smoking 05/18/2021 12:00:00 AM EDT Never Smoker completed Never S moker eCW1 ([facility]) Smoking 04/18/2021 12:00:00 AM EDT Never Smoker completed Never S moker eCW1 ([facility]) Smoking 04/18/2021 12:00:00 AM EDT Never Smoker completed Never S moker eCW1 ([facility]) Smoking 03/24/2021 12:00:00 AM EDT Never Smoker completed Never S moker eCW1 ([facility]) Smoking 02/28/2021 12:00:00 AM EDT Never Smoker completed Never S moker eCW1 ([facility]) Smoking 02/28/2021 12:00:00 AM EDT Never Smoker completed Never S moker eCW1 ([facility]) Smoking 02/03/2021 12:00:00 AM EDT Never Smoker completed Never S moker eCW1 ([facility]) Smoking 02/03/2021 12:00:00 AM EDT Never Smoker completed Never S moker eCW1 ([facility]) Smoking 01/06/2021 12:00:00 AM EDT Never Smoker completed Never S moker eCW1 ([facility]) Smoking 12/09/2020 12:00:00 AM EDT Never Smoker completed Never S moker eCW1 ([facility]) Smoking 09/16/2020 12:00:00 AM EST Never Smoker completed Never S moker eCW1 ([facility]) Smoking 08/04/2020 12:00:00 AM EST Never Smoker completed Never S moker eCW1 ([facility]) Vital Signs ID Date Data Source UNK Name Value Range Interpretation Code Description Data Source(s) Body weight 147 [lb_av] 147 [lb_av] eCW1 ([facility]) Body height 60 [in_i] 60 [in_i] eCW1 ([facility]) Body mass index (BMI) [Ratio] 28.709 kg/m2 28.7 09 kg/m2 eCW1 ([facility]) Systolic blood pressure 112 mm[Hg] 112 mm[Hg] e CW1 ([facility]) Diastolic blood pressure 60 mm[Hg] 60 mm[Hg] eCW1 ([facility]) Body weight 146 [lb_av] 146 [lb_av] eCW1 ([facility]) Body weight 66.22 kg 66.22 kg eCW1 ([facility]) Body height 60 [in_i] 60 [in_i] eCW1 ([facility]) Body mass index (BMI) [Ratio] 28.514 kg/m2 28.5 14 kg/m2 eCW1 ([facility]) Systolic blood pressure 112 mm[Hg] 112 mm[Hg] e CW1 ([facility]) Diastolic blood pressure 68 mm[Hg] 68 mm[Hg] eCW1 ([facility]) Body weight 144 [lb_av] 144 [lb_av] eCW1 ([facility]) Body height 60 [in_i] 60 [in_i] eCW1 ([facility]) Body mass index (BMI) [Ratio] 28.123 kg/m2 28.1 23 kg/m2 eCW1 ([facility]) Systolic blood pressure 110 mm[Hg] 110 mm[Hg] e CW1 ([facility]) Diastolic blood pressure 60 mm[Hg] 60 mm[Hg] eCW1 ([facility]) Body weight 141 [lb_av] 141 [lb_av] eCW1 ([facility]) Body height 60 [in_i] 60 [in_i] eCW1 ([facility]) Body mass index (BMI) [Ratio] 27.537 kg/m2 27.5 37 kg/m2 eCW1 ([facility]) Systolic blood pressure 102 mm[Hg] 102 mm[Hg] e CW1 ([facility]) Diastolic blood pressure 60 mm[Hg] 60 mm[Hg] eCW1 ([facility]) Body weight 138.8 [lb_av] 138.8 [lb_av] eCW1 ([facility]) Body weight 62.96 kg 62.96 kg eCW1 ([facility]) Body height 60 [in_i] 60 [in_i] eCW1 ([facility]) Body mass index (BMI) [Ratio] 27.108 kg/m2 27.1 08 kg/m2 eCW1 ([facility]) Systolic blood pressure 112 mm[Hg] 112 mm[Hg] e CW1 ([facility]) Diastolic blood pressure 64 mm[Hg] 64 mm[Hg] eCW1 ([facility]) Body weight 140.0 [lb_av] 140.0 [lb_av] eCW1 ([facility]) Body weight 63.5 kg 63.5 kg eCW1 ([facility]) Body height 60 [in_i] 60 [in_i] eCW1 ([facility]) Body mass index (BMI) [Ratio] 27.34 kg/m2 27.34 kg/m2 eCW1 ([facility]) Systolic blood pressure 126 mm[Hg] 126 mm[Hg] e CW1 ([facility]) Diastolic blood pressure 62 mm[Hg] 62 mm[Hg] eCW1 ([facility]) Body weight 133 [lb_av] 133 [lb_av] eCW1 ([facility]) Diastolic blood pressure 66 mm[Hg] 66 mm[Hg] eCW1 ([facility]) Body height 60 [in_i] 60 [in_i] eCW1 ([facility]) Body mass index (BMI) [Ratio] 25.975 kg/m2 25.9 75 kg/m2 eCW1 ([facility]) Systolic blood pressure 108 mm[Hg] 108 mm[Hg] e CW1 ([facility]) Body weight 131.2 [lb_av] 131.2 [lb_av] eCW1 ([facility]) Body weight 59.51 kg 59.51 kg eCW1 ([facility]) Body height 60 [in_i] 60 [in_i] eCW1 ([facility]) Body mass index (BMI) [Ratio] 25.623 kg/m2 25.6 23 kg/m2 eCW1 ([facility]) Systolic blood pressure 104 mm[Hg] 104 mm[Hg] e CW1 ([facility]) Diastolic blood pressure 66 mm[Hg] 66 mm[Hg] eCW1 ([facility]) Body weight 128.2 [lb_av] 128.2 [lb_av] eCW1 ([facility]) Body height 60 [in_i] 60 [in_i] eCW1 ([facility]) Body mass index (BMI) [Ratio] 25.037 kg/m2 25.0 37 kg/m2 eCW1 ([facility]) Systolic blood pressure 112 mm[Hg] 112 mm[Hg] e CW1 ([facility]) Diastolic blood pressure 64 mm[Hg] 64 mm[Hg] eCW1 ([facility]) Body weight 129.8 [lb_av] 129.8 [lb_av] eCW1 ([facility]) Body height 60 [in_i] 60 [in_i] eCW1 ([facility]) Body mass index (BMI) [Ratio] 25.35 kg/m2 25.35 kg/m2 eCW1 ([facility]) Systolic blood pressure 116 mm[Hg] 116 mm[Hg] e CW1 ([facility]) Diastolic blood pressure 68 mm[Hg] 68 mm[Hg] eCW1 ([facility]) Body weight 127 [lb_av] 127 [lb_av] eCW1 ([facility]) Body weight 57.61 kg 57.61 kg eCW1 ([facility]) Body height 60 [in_i] 60 [in_i] eCW1 ([facility]) Body mass index (BMI) [Ratio] 24.803 kg/m2 24.8 03 kg/m2 eCW1 ([facility]) Systolic blood pressure 102 mm[Hg] 102 mm[Hg] e CW1 ([facility]) Diastolic blood pressure 58 mm[Hg] 58 mm[Hg] eCW1 ([facility]) Body weight 127 [lb_av] 127 [lb_av] eCW1 ([facility]) Body height 60 [in_i] 60 [in_i] eCW1 ([facility]) Body mass index (BMI) [Ratio] 24.803 kg/m2 24.8 03 kg/m2 eCW1 ([facility]) Systolic blood pressure 104 mm[Hg] 104 mm[Hg] e CW1 ([facility]) Diastolic blood pressure 68 mm[Hg] 68 mm[Hg] eCW1 ([facility]) Systolic blood pressure 122 mm[Hg] 122 mm[Hg] M EDENT ([facility]) Diastolic blood pressure 78 mm[Hg] 78 mm[Hg] MEDENT ([facility]) Heart rate 80 /min 80 /min MEDENT ([facility]) Respiratory rate 20 /min 20 /min MEDENT ( [facility]) Oxygen saturation in Arterial blood by Pulse oximetry 99 % 99 % MEDENT ([facility]) Body temperature 97.6 [degF] 97.6 [degF] MEDENT ([facility]) Body weight 124.00 [lb_av] 124.00 [lb_av] MEDEN T ([facility]) Body height 60 [in_i] 60 [in_i] MEDENT ([facility]) 5'0" Body mass index (BMI) [Ratio] 24.2 kg/m2 24.2 k g/m2 MEDENT ([facility]) Body weight 123.4 [lb_av] 123.4 [lb_av] eCW1 ([facility]) Body weight 55.97 kg 55.97 kg eCW1 ([facility]) Body height 60 [in_i] 60 [in_i] eCW1 ([facility]) Body mass index (BMI) [Ratio] 24.1 kg/m2 24.1 k g/m2 [facility] ([facility]) Systolic blood pressure 106 mm[Hg] 106 mm[Hg] e CW1 ([facility]) Diastolic blood pressure 68 mm[Hg] 68 mm[Hg] W1 ([facility]) Body weight 123.6 [lb_av] 123.6 [lb_av] eCW1 ([facility]) Body height 60 [in_i] 60 [in_i] W1 ([facility]) Body mass index (BMI) [Ratio] 24.14 kg/m2 24.14 kg/m2 [facility] ([facility]) Systolic blood pressure 106 mm[Hg] 106 mm[Hg] e CW1 ([facility]) Diastolic blood pressure 74 mm[Hg] 74 mm[Hg] W1 ([facility])
[2021-07-25] MEDS ORDERED: HOME MED LIST COMPLETE! XX SCH (11:40)
[2021-07-25] MEDS ORDERED: LACTATED RINGER'S 1000 ML IV STA (11:53)
[2021-07-25] MEDS ORDERED: LIDOCAINE 1% MDV 20ML VIAL INFIL PRN (11:55)
[2021-07-25] MEDS ORDERED: METHYLERGONOVINE MALEATE 0.2 MG/ML VIAL (J2210) IM PRN (11:55)
[2021-07-25] MEDS ORDERED: TRANEXAMIC ACID INJection 1,000 MG in NS 100 ML IV PRN (11:55)
[2021-07-25] MEDS ORDERED: OXYTOCIN DRIP 30 UNITS in IV 1 EA IV SCH (11:55)
[2021-07-25] MEDS ORDERED: CARBOPROST TROMETHAMINE 250 MCG/ML AMP IM PRN (11:55)
[2021-07-25] MEDS: LR 1,000 ML IV SCH ×2 (11:55→19:55)
[2021-07-25] MEDS ORDERED: OXYTOCIN DRIP 30 UNITS in IV 1 EA IV PRN (11:55)
[2021-07-25 12:37] LABS: HEMATOCRIT 37.3 % (36.0-47.0); HEMOGLOBIN 12.4 g/dl (12.0-15.5); MEAN CORPUSCULAR HEMOGLOBIN 31.1 pg (27.0-33.0); MEAN CORPUSCULAR HGB CONC 33.2 g/dl (32.0-36.5); MEAN CORPUSCULAR VOLUME 93.5 fl (80.0-96.0); PLATELET COUNT, AUTOMATED 163 10^3/uL (150-450); RED BLOOD COUNT 3.99 10^6/uL (4.00-5.40); WHITE BLOOD COUNT 7.7 10^3/uL (4.0-10.0)
--- NOTE | 2021-07-25 13:09 | HPEPDOC ---
Obstetrical History & Physical General Date of Admission Jul 25, 2021 at 11:16 Primary Care Physician: LAY MÉNDEZ CNM History of Present Illness Elly is a 30-year-old female who is a at 39 weeks gestation with an LUCHO of 08/01/21 based off of her LMP and consistent with her first trimester ultras ound. She initiated care in her first trimester of at [facility]. Her has been uncomplicated. She presents to labor and delivery after being seen in the office and found to be ruptured. Reports vaginal bleeding and leaking of fluid at 0100. She reports contractions that are irregular and reports active movement. Information Provided By: Patient Age: 30 : 2 Term: 1 Pre-term: 0 Abortions: 0 Livin Care Care: Good Care Dating Final EDC: Aug 01, 2021 Final EDC by: LMP EGA at Admission: 39 Antepartum Course Height (inches): 60 Pre- weight (lbs.): 127 Admission Weight (lbs.): 150 Change in Weight (lbs.): 23 Past Medical History Past Obstetrical History : Past Obstetrical History: Primgravida Date of Delivery: Oct 06, 2016 Gestation: 41.1 Type of Delivery: Spontaneous Vaginal Del. Sex of Infant: Male (8 lbs 6 oz) Complications: No FURNACE FILLER History: No pertinent history Past Medical History Surgical History: Denies/None Family History Significant Family History: Cancer (pancreatic and skin cancer), Diabetes Social History Social history RN for urology Marital Status: Family situation: Spouse/partner home Psychosocial History: No pertinent psych hx * Smoker: non-smoker Alcohol: Denies Drugs: denies Abuse Violence Screening Have you been hit/kicked/slapp: No Have you been sexually assault: No Imunizations Tdap status: current Influenza Status: current Allergies Coded Allergies: No Known Drug Allergies (Verified Allergy, Unknown, 08/18/20) Medications Scheduled No.137/Iron/Folic Acd ( Vitamin Tablet) 1 Tab Tab, 1 TAB PO DAILY Scheduled PRN Acetaminophen (Mapap) 500 Mg Tab, 1,000 MG PO Q6HP PRN for PAIN Physical Examination Physical Examination GENERAL: Alert and oriented times three. Abdomen: gravid. FETUS: Is vertex (VTX) by sterile vaginal examination (SVE), fetus is vertex (VTX) by Yaya. LUNGS: Regular rate without use of accessory muscles. Comfortable on room air. EXTREMITIES: No edema. No clonus. Vital Signs/I&O Vital Signs Date Time Temp Pulse Resp B/P (MAP) Pulse Ox O2 Delivery O2 Flow Rate FiO2 07/25/21 11:40 98.8 72 18 123/71 (88) Laboratory Data 24H LABS Laboratory Tests 2 07/25/21 11:37: Serology Scanned Report Hepatitis B Testing 07/25/21 12:25: Nucleated Red Blood Cells % (auto) 0.0 CBC/BMP Laboratory Tests 07/25/21 12:25 Pertinent Laboratoy Data Blood Type: A- RBC Antibody Screen: Negative HIV: Negative Hepatitis B: Negative Hepatitis C: Negative Rapid Plasma Reagin: Nonreactive Rubella: Immune Chlamydia/Gonorrhea: Negative Group B Streptococcus: Negative Glucose Tolerance Test: 80 Vaginal Examination Dilation: 3 cm Effacement: 50% Station: -3 Cervical Consistency: Soft Cervical Position: Anterior Presentation: Cephalic presentation Assessment Heart Rate (FHR): 140 Variability: Moderate Accelerations: Positive Decelerations: None Tocometer Contractions: Yes Frequency: irregular Multi-drug resistant Organism: No history of MDRO Assessment/Plan Assessment IUP at 39 weeks gestation SROM GBS negative Category I FHR tracing Plan Admit to labor and delivery. OOB ad bertha. Diet: clears. Group B Streptococcus (GBS) negative. Labs and intravenous (IV) per unit protocol. Counseled on Pitocin for induction of labor (IOL). Anesthesia consult per patient's request. Lactated Ringers (LR): Bolus 800 mL prior to epidural, then at 125 mL/hr. Anticipate cervical change and . C-S as appropriate. LAY MÉNDEZ CNM Jul 25, 2021 13:09
[2021-07-25] MEDS ORDERED: FENTANYL 2MCG/ML ROPIVACAINE 0.2% IN 0.9% NACL 100ML IVBAG As Ordered ONE (16:08)
[2021-07-25] MEDS ORDERED: LACTATED RINGER'S 1000 ML IV PRN (17:15)
[2021-07-25] MEDS ORDERED: ONDANSETRON 4MG/2ML VIAL IV PRN (17:15)
[2021-07-25] MEDS ORDERED: EPIDURAL/PCA KEYS XX PRN (17:15)
[2021-07-25] MEDS ORDERED: REFRIGERATOR IV KEYS XX PRN (17:15)
[2021-07-25] MEDS ORDERED: FENTANYL/ROPIVACAINE/NACL BAG 100 ML EPIDURAL SCH (17:15)
[2021-07-25] MEDS ORDERED: NALOXONE INJ 0.4MG/1ML VIAL (J2310 PER 1MG) IV PRN (17:15)
[2021-07-25] MEDS ORDERED: EPIDURAL COMMENT XX SCH (17:15)
[2021-07-25] MEDS ORDERED: diphenhydrAMINE 50MG/ML VIAL (J1200) IV PRN (17:15)
[2021-07-25] MEDS: ePHEDrine SULFATE 25 MG/5 ML(5MG/ML) SYRINGE IV PRN ×2 (18:06→18:18)
--- NOTE | 2021-07-25 21:08 | IPNPDOC ---
Obstetrical Progress Note Date of Service Jul 25, 2021 Subjective Patient is comfortable with her epidural. Objective Vital Signs Date Time Temp Pulse Resp B/P (MAP) Pulse Ox O2 Delivery O2 Flow Rate FiO2 07/25/21 20:37 66 16 128/67 (87) Room Air 07/25/21 19:08 97.9 Assessment Heart Rate (FHR): 140 Variability: Moderate Decelerations: Late Heart Rate Tracing: Category II Tocometer Contractions: Yes Frequency: regular Sterile Vaginal Examination Dilation: 8 cm Effacement (%): 90% Station: -1 Cervical Consistency: Soft Cervical Position: Anterior Assessment and Plan Status: Reassuring Group B Streptococcus: Negative Anticipate: Vaginal Delivery Additional Comments likely clinical abruption from the moderate amount of bleeding she has been having since her water broke. Attempted to push to see if we could deliver and she ruptured a moderate amount of clear fluid with push. Since the rest of her fluid ruptured she is having variables that aren't deep. Dr. Vidal will be notified to come in if she has increased vaginal bleeding. LAY MÉNDEZ CNM Jul 25, 2021 21:08
[2021-07-25] MEDS ORDERED: ANUSOL HC CREAM 30GM TOP PRN (23:00)
[2021-07-25] MEDS ORDERED: DOCUSATE SODIUM 100MG CAPSULE PO PRN (23:00)
[2021-07-25] MEDS ORDERED: DIBUCAINE 1% OINTMENT 30GM TOP PRN (23:00)
[2021-07-25] MEDS ORDERED: MEASLES,MUMPS,RUBELLA VACCINE INJ (MMR-II) (90707) SC SCH (23:00)
[2021-07-25] MEDS ORDERED: ACETAMINOPHEN 500 MG TAB PO PRN (23:00)
[2021-07-25] MEDS ORDERED: METHYLERGONOVINE MALEATE 0.2 MG TAB PO PRN (23:00)
[2021-07-25] MEDS ORDERED: AMPICILLIN SOD/SULBACTAM SOD 3 GM in D5W MINI-BAG PLUS 100 ML IV ONE (23:00)
[2021-07-25] MEDS ORDERED: RHOGAM 300 MCG (1500 IU) INJ (J2790) IM SCH (23:00)
[2021-07-25] MEDS ORDERED: MOM 30ML SUSPENSION UDC PO PRN (23:00)
--- NOTE | 2021-07-25 23:52 | DNPDOC ---
[facility] Delivery Note Delivery Note DATE OF DELIVERY: 07/25/21 at 2215 PREDELIVERY DIAGNOSIS: 39-0/7 weeks' gestation and augmentation of labor. POST DELIVERY DIAGNOSIS: Delivered. PROCEDURE: Spontaneous vaginal delivery. LAN SPECIALIST: Lay Ocampo CNM, ADELIA ANESTHESIA: epidural. ESTIMATED BLOOD LOSS: 400 mL. FINDINGS: 7 pounds; 3780 grams; male , Score 8/9, partial placental abruption. DELIVERY SUMMARY: Elly is a 30-year-old female who is now a who presented to labor and delivery after being seen in the office with SROM. She reports a large amount of vaginal bleeding and continuous leaking of fluid at 0100. She continued to have a moderate amount of bleeding suspicious for a placental abruption. She received IV Pitocin for augmentation of labor. Elly requested an epidural for pain management. She progressed to fully dilated at 2155 and pushed to a living male in the CESARIO position with restitution to LOT. The anterior shoulder delivered with ease and the corpus immediately followed. The baby was placed [id number] active and crying with stimulation. The cord was clamped after pulsation ceased and cut by the FOB. A 3-vessel cord was noted. The placenta delivered spontaneously and intact at 2218. About 1/8 of the placenta was clotted off consistent with a placental abruption. Uterine hemostasis was achieved via rapid infusion of IV Pitocin and fundal massage. The vagina, cervix and perineum was inspected an found to have a first degree perineal laceration that was repaired with a 3.[address]-1. Mom plans to breastfeed. All counts of instruments and sponges are correct. They are naming him Baxnadeen. Both mom and baby are in stable condition. LAY OCAMPO CNM Jul 25, 2021 23:52
[2021-07-26] MEDS: IBUPROFEN 600MG TAB PO PRN ×2 (00:06→09:02)
[2021-07-26 00:30] VITALS: BP 116/59
[2021-07-26 05:57] VITALS: BP 125/82
[2021-07-26] MEDS: PRENATAL VITAMINS CHEWABLE TABLET PO SCH (09:02)
--- NOTE | 2021-07-26 11:16 | IPNPDOC ---
Progress Note Date of Service: Jul 26, 2021 Progress Note SUBJECT: Patient is a 30-year-old G 2 P 2001 status post uncomplicated spontaneous vaginal delivery at 39-0/7 weeks' doing well day #1. She has been ambulating, voiding spontaneously without issue and tolerating regular diet. Breast feeding without issue. Reports lochia is like a normal period. Patient is ambulating well. Reports some cramping, well controlled with medication. Voiding and ambulating without difficulty. OBJECTIVE: VITAL SIGNS: Within normal limits, afebrile. Alert and oriented times three. Breath sounds clear to auscultation. Heart rate: Regular rate and rhythm, no murmurs, rubs or gallops. Abdomen: Fundus firm at U-2. Soft, NTTP. Minimal to moderate lochia. ASSESSMENT: Patient is a 30-year-old G 2 P 2001 status post uncomplicated vaginal delivery. Doing well on day 1. Vitals within normal limits, afebrile, hemodynamically stable with no evidence of infection. PLAN: 1. Discharge to home tomorrow 2. Tylenol and Motrin for pain. 3. Encourage breast feeding and ambulation. 5. Routine PP visit in 6 weeks in clinic. 6. Discussed return precautions at length. VS, I&O, 24H, Fishbone Vital Signs/I&O Vital Signs Date Time Temp Pulse Resp B/P (MAP) Pulse Ox O2 Delivery O2 Flow Rate FiO2 07/26/21 05:57 97.8 72 18 125/82 (96) Room Air 07/26/21 00:30 98 I&O- Last 24 Hours up to 6 AM 07/26/21 06:00 Intake Total 3749.3 ml Output Total 1200 ml Balance 2549.3 ml Laboratory Data 24H LABS Laboratory Tests 2 07/25/21 11:37: Serology Scanned Report Hepatitis B Testing 07/25/21 12:25: Nucleated Red Blood Cells % (auto) 0.0, Syphilis Serology NONREACTIVE CBC/BMP Laboratory Tests 07/25/21 12:25 ABELARDO PEREZ MD Jul 26, 2021 11:15
[2021-07-26] MEDS: ACETAMINOPHEN TAB 650MG DOSE (2X325MG) PO PRN (13:30)
[2021-07-26] MEDS: IBUPROFEN 800 MG TAB PO PRN (17:21)
[2021-07-26 18:00] VITALS: BP 137/74
[2021-07-27] MEDS: IBUPROFEN 800 MG TAB PO PRN (02:48)
[2021-07-27 06:00] VITALS: BP 109/70
[2021-07-27] MEDS: PRENATAL VITAMINS CHEWABLE TABLET PO SCH (08:13)
[2021-07-27] MEDS: ACETAMINOPHEN TAB 650MG DOSE (2X325MG) PO PRN (08:13)
[2021-07-27] MEDS ORDERED: IBUP80TA PO (10:04)
== END 2021-07-27 15:45 | disposition home or self-care (01) | DRG 560 ==
LOC: M LDI 11:16 → M OBS 07-26 00:30
PROVIDERS: ADMIT Advanced Practice Midwife; ATTEND Advanced Practice Midwife
PROC: 10E0XZZ Delivery of Products of Conception, External Approach (ICD-10-PCS; principal; 2021-07-25)
PROC: 0HQ9XZZ Repair Perineum Skin, External Approach (ICD-10-PCS; 2021-07-25)
DX: O45.90 Premature separation of placenta, unspecified, unspecified trimester (principal); Z37.0 Single live birth; Z3A.39 39 weeks gestation of pregnancy; O70.0 First degree perineal laceration during delivery

== ENCOUNTER → 2022-12-08 | Outpatient (REF) | payer BC ==
[~2022-12-08] MED LIST changes: +IBUP80TA PO
== END ==
LOC: M LAB REF 17:11
PROVIDERS: ATTEND Surgery
DX: D48.5 Neoplasm of uncertain behavior of skin (principal)

== ENCOUNTER → 2024-06-26 | Outpatient (REF) | payer BC | LOC: M PLALAB 08:37 | PROVIDERS: ATTEND Advanced Practice Midwife | DX: N76.0 Acute vaginitis (principal); N89.8 Other specified noninflammatory disorders of vagina; R39.89 Other symptoms and signs involving the genitourinary system ==

== ENCOUNTER → 2025-06-02 | Outpatient (REF) | payer BC ==
[2025-06-02 13:16] LABS: APPEARANCE, URINE CLOUDY (CLEAR); BACTERIA, URINE AUTO NEGATIVE (NEGATIVE); BILIRUBIN, URINE AUTO NEGATIVE (NEGATIVE); BLOOD, URINE BLOOD 1+ (NEGATIVE); GLUCOSE, URINE (UA) AUTO NEGATIVE (NEGATIVE); KETONE, URINE AUTO NEGATIVE (NEGATIVE); LEUKOCYTE ESTERASE, URINE AUTO 3+ (NEGATIVE); MUCUS, URINE SMALL (NEGATIVE); NITRITE, URINE AUTO NEGATIVE (NEGATIVE); PROTEIN, URINE AUTO 1+ mg/dL (NEGATIVE); RBC, URINE AUTO 23 /HPF (0-3); SPECIFIC GRAVITY URINE AUTO 1.029 (1.002-1.035); SQUAMOUS EPITHELIAL CELL UR AU 1 /HPF (0-6); UROBILINOGEN, URINE AUTO 0.2 mg/dL (0.0-2.0); WBC, URINE AUTO TNTC /HPF (0-3)
== END ==
LOC: M SMT 12:45
PROVIDERS: ATTEND Physician Assistant
DX: R39.9 Unspecified symptoms and signs involving the genitourinary system (principal)